=== PATIENT | female | born 1970 | race American Indian/Alaskan Native ===

== ENCOUNTER 2016-10-20 12:02 | Outpatient (CLI) | payer MEDICAID ==
--- NOTE | 2016-10-21 09:03 | Mammography Report ---
BILATERAL DIGITAL SCREENING MAMMOGRAM with CAD: 10/20/16 12:02:00 CLINICAL: Routine screening. COMPARISON:07/01/15 FINDINGS: The breasts are heterogeneously dense, which may obscure small masses. Right asymmetries require additional imaging.No architectural distortion or suspicious calcifications.The left breast is negative. IMPRESSION: Right asymmetries requiring further workup. BI-RADS CATEGORY: 0 -- Additional Imaging Evaluation Required RECOMMENDATION: Recall for right mediolateral , spot compression CC and MLO views and right breast ultrasound if needed. ACR BI-RADS MAMMOGRAPHIC CODES: 0 = Needs additional imaging evaluation; 1 = Negative; 2 = Benign; 3 = Probably benign; 4 = Suspicious; 5 = Malignant; 6 = Known biopsy-proven malignancy COMMENT: 1. Dense breast tissue, i.e., adenosis, fibrocystic changes, etc., may obscure an underlying neoplasm. 2. Approximately 10% of cancers are not detected with mammography. 3. A negative mammography report should not delay biopsy if a clinically suspicious mass is present. COMMENT: Patient follow-up letters are generated via our [employer] application.
== END 2016-10-20 12:03 | disposition home or self-care (01) ==
LOC: MAMMO 12:02
PROVIDERS: ATTEND Internal Medicine
DX: Z12.31 Encounter for screening mammogram for malignant neoplasm of breast (principal)
CPT/HCPCS: 77067; G0202

== ENCOUNTER 2017-07-10 11:05 | Emergency (ER) | payer MEDICAID ==
[2017-07-10 11:15] VITALS: BP 129/76
[2017-07-10] MEDS ORDERED: TORADOL IM ONE (11:37)
[2017-07-10] MEDS ORDERED: FLEXERIL PO ONE (11:37)
[2017-07-10] MEDS ORDERED: ULTRAM PO ONE (11:37)
--- NOTE | 2017-07-10 11:52 | Emergency Department Report ---
ED Neck Pain/Injury HPI - General Chief Complaint: Neck Pain/Injury Stated Complaint: NECK PAIN Time Seen by Provider: 07/10/17 11:22 Mode of arrival: Ambulatory Limitations: No Limitations - History of Present Illness MD Complaint: neck pain -: Sudden Place: home Radiation: right lateral Quality: other (stiff) Consistency: intermittent, other (has had before) Improves With: none Worsens With: none Context: other (no trauma. no fever. no other s/s. no recent mvc. no recent urti. has had this before. just wakes up like this. on xanax for anxiety. it is not helping. ) Associated Symptoms: none. denies: headache, fever, numbness, tingling, weakness, vertigo, difficulty walking, swollen glands, difficulty swallowing, nausea, vomiting Treatments Prior to Arrival: other (xanax) - Related Data Previous Rx's Medication Instructions Recorded Last Taken Type Cyclobenzaprine [Flexeril] 10 mg PO BID PRN #10 tablet 07/10/17 Unknown Rx predniSONE [Deltasone] 20 mg PO DAILY #5 tablet 07/10/17 Unknown Rx traMADol [Ultram] 50 mg PO Q6HR PRN #12 tablet 07/10/17 Unknown Rx Allergies Allergy/AdvReac Type Severity Reaction Status Date / Time cefoxitin sodium Allergy Shortness Verified 05/22/14 14:38 [From Mefoxin] of Breath ED Review of Systems ROS: Stated complaint: NECK PAIN Other details as noted in HPI Comment: All other systems reviewed and negative Musculoskeletal: other (neck stiff upon wakening this am; no other s/s; ambulatory) ED Past Medical Hx - Past Medical History Hx Congestive Heart Failure: No Hx Diabetes: No Hx Asthma: Yes Hx COPD: No Additional medical history: anxiety. previous neck spasm - Surgical History Additional Surgical History: c section. partial hysterectomy - 2008 - Social History Smoking Status: Never Smoker Substance Use Type: None - Medications Home Medications: Home Medications Medication Instructions Recorded Confirmed Last Taken Type Cyclobenzaprine [Flexeril] 10 mg PO BID PRN #10 tablet 07/10/17 Unknown Rx predniSONE [Deltasone] 20 mg PO DAILY #5 tablet 07/10/17 Unknown Rx traMADol [Ultram] 50 mg PO Q6HR PRN #12 tablet 07/10/17 Unknown Rx ED Physical Exam - General Limitations: No Limitations General appearance: alert - Head Head exam: Present: atraumatic - Eye Eye exam: Present: normal appearance Pupils: Present: normal accommodation - ENT ENT exam: Present: normal exam - Neck Neck exam: Present: full ROM (but stiff and pain w turn to left), other (no point tenderness or step off). Absent: tenderness, meningismus, lymphadenopathy , thyromegaly - Respiratory Respiratory exam: Present: normal lung sounds bilaterally - Cardiovascular Cardiovascular Exam: Present: regular rate - GI/Abdominal GI/Abdominal exam: Present: soft - Rectal Rectal exam: Present: deferred - Extremities Exam Extremities exam: Present: normal inspection - Back Exam Back exam: Present: normal inspection, full ROM - Neurological Exam Neurological exam: Present: alert, oriented X3 - Psychiatric Psychiatric exam: Present: normal affect, normal mood - Skin Skin exam: Present: warm, dry, intact. Absent: rash ED Course Vital Signs 07/10/17 11:14 Temperature 98.4 F Pulse Rate 64 Respiratory 18 Rate Blood Pressure 129/76 O2 Sat by Pulse 100 Oximetry - Reevaluation(s) Reevaluation #1: 07/10/17 11:52 medicated w toradol, flexeril, and ultram Reevaluation #2: 07/10/17 12:39 NOW DEC PAIN AND MOVING WELL ED Medical Decision Making - Medical Decision Making woke up w stiff neck has had before no other s/s can move but w pain to left on xanax does not help ambulatory - Differential Diagnosis soft tissue inj v djd Critical care attestation.: If time is entered above; I have spent that time in minutes in the direct care of this critically ill patient, excluding procedure time. ED Disposition Clinical Impression: Torticollis Disposition: DC-01 TO HOME OR SELFCARE Is pt being admited?: No Does the pt Need Aspirin: No Condition: Stable Instructions: Spasmodic Torticollis (ED) Additional Instructions: heat rest meds as ordered follow up pcp or with ortho new pillow as we discussed Prescriptions: Cyclobenzaprine [Flexeril] 10 mg PO BID PRN #10 tablet PRN Reason: Muscle Spasm predniSONE [Deltasone] 20 mg PO DAILY #5 tablet traMADol [Ultram] 50 mg PO Q6HR PRN #12 tablet PRN Reason: Pain Referrals: PRIMARY CARE, [Primary Care Provider] - 3-5 Days SVETA PEDRO MD [Referring] - 3-5 Days ARCELIA TIRADO MD [Staff Physician] - 3-5 Days Time of Disposition: 11:52
== END 2017-07-10 12:46 | disposition home or self-care (01) ==
LOC: ED 11:05
DX: M43.6 Torticollis (principal); J45.909 Unspecified asthma, uncomplicated
CPT/HCPCS: 96372; 99282; J1885

== ENCOUNTER 2017-10-16 13:08 | Emergency (ER) | payer MEDICAID ==
[2017-10-16 16:53] LABS: HCG Qualitative,Urine Negative (Negative)
[2017-10-16 16:56] LABS: Bilirubin,Urine NEG (Negative); Blood,Urine NEG (Negative); Color,Urine Yellow (Yellow); Protein,Urine <15 mg/dL mg/dL (Negative); Urobilinogen,Urine < 2.0 mg/dL (<2.0)
[2017-10-16] MEDS ORDERED: ULTRAM PO ONE (17:20)
--- NOTE | 2017-10-16 17:29 | Emergency Department Report ---
HPI - General Chief Complaint: Back Pain/Injury Time Seen by Provider: 10/16/17 16:20 - HPI HPI: Patient is a 47-year-old female with no prior medical history of present ED complaining of mid to lower back pain 4 days. Patient denies any injury or trauma or fall. Patient states pain is localized to her lower back and sometimes felt on the right side of the back. She describes the pain as throbbing and aching in nature related to tingling sensation at times. Patient states is intermittent throughout the day. She denies fevers chills/dysuria/ vaginal discharge/flank or Abdominal pain/chest pain/shortness of breath. Patient states pain worsens with certain movement. Patient states she takes no medications for any other medical problems ED Past Medical Hx - Past Medical History Hx Congestive Heart Failure: No Hx Diabetes: No Hx Asthma: Yes Hx COPD: No Additional medical history: anxiety. previous neck spasm - Surgical History Additional Surgical History: c section. partial hysterectomy - 2008 - Social History Smoking Status: Never Smoker Substance Use Type: Marijuana - Medications Home Medications: Home Medications Medication Instructions Recorded Confirmed Last Taken Type Cyclobenzaprine [Flexeril] 10 mg PO BID PRN #10 tablet 07/10/[address] (Nf) 50 mg PO BID #30 tablet. 10/16/17 Unknown Rx predniSONE [Deltasone] 20 mg PO DAILY #5 tablet 10/16/17 Unknown Rx traMADol [Ultram 50 MG tab] 50 mg PO Q6HR PRN #12 tablet 10/16/17 Unknown Rx ED Review of Systems ROS: Stated complaint: BACK PAIN Other details as noted in HPI Constitutional: denies: chills, fever Eyes: denies: eye pain, eye discharge, vision change ENT: denies: ear pain, throat pain Respiratory: denies: cough, shortness of breath, wheezing Cardiovascular: denies: chest pain, palpitations Endocrine: no symptoms reported Gastrointestinal: denies: abdominal pain, nausea, diarrhea Genitourinary: denies: urgency, dysuria, discharge Musculoskeletal: back pain, myalgia. denies: joint swelling, arthralgia Skin: denies: rash, lesions Neurological: denies: headache, weakness, paresthesias Psychiatric: denies: anxiety, depression Hematological/Lymphatic: denies: easy bleeding, easy bruising Physical Exam - Physical Exam Vital Signs: Vital Signs 10/16/17 14:08 Temperature 98.5 F Pulse Rate 64 Respiratory 18 Rate Blood Pressure 118/71 O2 Sat by Pulse 98 Oximetry Physical Exam: GENERAL: Alert and oriented x3, no apparent distress, Normal Gait, atraumatic. HEAD: Head is normocephalic and a-traumatic. LUNGS: Symetrical with respiration, No wheezing, no rales or crackles, CTAB. HEART: S1, S2 present, regular rate and rhythm without murmur, no rubs, no gallops. Non tender to palpation ABDOMEN: No organomegaly was noted,Positive bowel sounds, soft, and non- distended. . Nontender to palpation on all Quadrants, NO CVA tenderness. BACK: Full range of motion, no spinal tenderness, tenderness to palpation of the latissimus dorsi muscles. EXTREMITIES/MUSCULOSKELETAL: No cyanosis, clubbing, rash, lesions or edema. Full ROM bilaterally. UE/LE Pulses 2+ bilaterally. LE and UE 5+ strength bilaterally, NEUROLOGIC: The patient is cooperative with no focal neurologic deficits. SKIN: Warm and dry, No lesions, No ulceration or induration present. ED Course Vital Signs 10/16/17 14:08 Temperature 98.5 F Pulse Rate 64 Respiratory 18 Rate Blood Pressure 118/71 O2 Sat by Pulse 98 Oximetry ED Medical Decision Making - Medical Decision Making 47-year-old female presents to ED with lumbar radiculopathy ED course: Patient received tramadol in ED. Urinalysis is ordered, urinalysis shows no acute findings negative Vital signs are normal patient is in no acute distress Discussed with patient follow-up with primary care physician. Discussed the patient and take medications as prescribed. Patient has no neurological deficit. Patient is alert and oriented 3 and understands all instructions given. Discussed drowsiness effect of tramadol makes her drowsy and not to operate machinery while taking Critical care attestation.: If time is entered above; I have spent that time in minutes in the direct care of this critically ill patient, excluding procedure time. ED Disposition Clinical Impression: Myalgia, Muscle spasm, Lumbar radiculopathy Disposition: TO HOME OR SELFCARE Is pt being admited?: No Does the pt Need Aspirin: No Condition: Stable Instructions: Lumbar Radiculopathy (ED), Musculoskeletal Pain (ED), Trigger Point Pain (ED) Additional Instructions: Make sure to follow up with the primary care physician as discussed. Take all your medications as you've been prescribed. If you have any worsening symptoms or develop new symptoms please return to ED immediately. Prescriptions: Diclofenac Dr (Nf) 50 mg PO BID #30 tablet. predniSONE [Deltasone] 20 mg PO DAILY #5 tablet traMADol [Ultram 50 MG tab] 50 mg PO Q6HR PRN #12 tablet PRN Reason: Pain Referrals: ALMA DELIA HARVEY MD [Primary Care Provider] - 3-5 Days JAIME MORE MD [Staff Physician] - 3-5 Days NATALIE ZHU MD [Referring] - 3-5 Days [facility] [Outside] - 3-5 Days [facility] [Outside] - 3-5 Days Forms: Work/School Release Form, Accompanied Note Time of Disposition: 18:01
[2017-10-16 18:07] VITALS: BP 116/78
== END 2017-10-16 18:24 | disposition home or self-care (01) ==
LOC: ED 13:08
DX: M54.16 Radiculopathy, lumbar region (principal); F12.10 Cannabis abuse, uncomplicated
CPT/HCPCS: 81001; 81025; 87086; 99283

== ENCOUNTER 2018-01-17 12:54 | Outpatient (CLI) | payer MEDICAID | END 2018-01-17 12:55 | disposition home or self-care (01) | LOC: MAMMO 12:54 | PROVIDERS: ATTEND Obstetrics & Gynecology | DX: Z12.31 Encounter for screening mammogram for malignant neoplasm of breast (principal) | CPT/HCPCS: 77067 ==

== ENCOUNTER 2018-02-28 08:48 | Emergency (ER) | payer MEDICAID ==
[2018-02-28 09:49] LABS: Basophils % (Auto) 0.8 % (0.0-1.8); Eosinophils # (Auto) 0.1 K/mm3 (0.0-0.4); Eosinophils % (Auto) 1.9 % (0.0-4.3); Hematocrit 40.8 % (30.3-42.9); Hemoglobin 13.2 gm/dl (10.1-14.3); Lymphocytes # (Auto) 2.4 K/mm3 (1.2-5.4); Lymphocytes % (Auto) 47.3 % (13.4-35.0); Mean Corpuscular HGB Conc 32 % (30-34); Mean Corpuscular Volume 74 fl (79-97); Monocytes # (Auto) 0.4 K/mm3 (0.0-0.8); Monocytes % (Auto) 8.4 % (0.0-7.3); Platelet Count 256 K/mm3 (140-440); Red Blood Count 5.54 M/mm3 (3.65-5.03)
[2018-02-28 09:57] LABS: Mean Corpuscular Hemoglobin 24 pg (28-32)
[2018-02-28 10:05] LABS: BUN/Creatinine Ratio 17; Blood Urea Nitrogen 10 mg/dL (7-17); Hemolysis Index 16
--- NOTE | 2018-02-28 10:57 | Emergency Department Report ---
Blank Doc - Documentation Documentation: Patient presents to the emergency department with complaint of right scapular pain that radiates into her chest. Patient states she's had this on and off for the last couple months with the getting worse over the last 2-3 weeks. Patient states she sees a chiropractor was told that she has gas in the upper portion of her abdomen is causing her pain. Patient denies veena chest pain, abdominal pain, nausea, vomiting. Patient states she has anxiety but this feels slightly different abnormal Tello attacks because the pain radiates from her back into her toes. On my exam physical exam was within normal limits for respiratory and cardiovascular systems. Care be turned over to the mid-level provider with consultation provided by me EKG shows a sinus rhythm at 63 bpm with low voltage. No ST elevations or depressions not a STEMI
--- NOTE | 2018-02-28 11:53 | XRay Report ---
AP CHEST: HISTORY: chest pain AP view of the chest demonstrates a normal mediastinal and cardiac contour with clear lungs and normal bony and soft tissue structures. IMPRESSION: Unremarkable AP chest.
[2018-02-28] MEDS ORDERED: ATIVAN IV ONE (13:43)
--- NOTE | 2018-02-28 13:59 | Emergency Department Report ---
ED Chest Pain HPI - General Chief Complaint: Chest Pain Stated Complaint: CHEST PAIN/BACK Time Seen by Provider: 02/28/18 10:34 Source: patient Mode of arrival: Ambulatory Limitations: No Limitations - History of Present Illness Initial Comments: This is a 47-year-old female nontoxic, well nourished in appearance, no acute signs of distress presents to the ED with c/o of intermittent right upper back pain that radiates to right sided chest pain x3 weeks. Patient describes pain as aching intermittently. Patient denies any upper respiratory symptoms. Patient denies any shortness of breath, hemoptysis, fever, chills, nausea, vomiting, headache, stiff neck, numbness, tingling, abdominal pain. Patient denies pleuritic chest pain. Patient denies any recent travels or long car rides. Patient denies any recent surgeries or any sick contacts. Patient stated allergies to Mefoxin. Past medical history includes anxiety. MD Complaint: chest pain -: week(s) (3) Pain Location: right chest Pain Radiation: back Severity: mild Severity scale (0 -10): 8 Quality: aching Consistency: intermittent Improves With: nothing Worsens With: nothing re: denies: nausea, vomting, diaphoresis, dyspnea, sense of impending doom Other Symptoms: denies: cough, fever, syncope, rash, acid taste in mouth, leg swelling, palpitations, burping Aspirin use within the Past 7 Days: (0) No - Related Data On Oral Contraceptives: No Previous Rx's Medication Instructions Recorded Last Taken Type Cyclobenzaprine [Flexeril] 10 mg PO BID PRN #10 tablet 07/10/[address] (Nf) 50 mg PO BID #30 tablet. 10/16/17 Unknown Rx predniSONE [Deltasone] 20 mg PO DAILY #5 tablet 10/16/17 Unknown Rx traMADol [Ultram 50 MG tab] 50 mg PO Q6HR PRN #12 tablet 10/16/17 Unknown Rx Cyclobenzaprine [Flexeril] 10 mg PO QHS PRN #10 tablet 02/28/18 Unknown Rx Ibuprofen [Motrin] 600 mg PO Q8H PRN #30 tablet 02/28/18 Unknown Rx Allergies Allergy/AdvReac Type Severity Reaction Status Date / Time cefoxitin sodium Allergy Shortness Verified 05/22/14 14:38 [From Mefoxin] of Breath Heart Score - HEART Score History: Slightly suspicious EKG: Normal Age: 45-65 Risk factors: No known risk factors Troponin: < normal limit HEART Score: 1 ED Review of Systems ROS: Stated complaint: CHEST PAIN/BACK Other details as noted in HPI Constitutional: denies: chills, fever Eyes: denies: eye pain, eye discharge, vision change ENT: denies: ear pain, throat pain Respiratory: denies: cough, shortness of breath, wheezing Cardiovascular: chest pain. denies: palpitations Endocrine: no symptoms reported Gastrointestinal: denies: abdominal pain, nausea, diarrhea Genitourinary: denies: urgency, dysuria, discharge Musculoskeletal: back pain. denies: joint swelling, arthralgia Skin: denies: rash, lesions Neurological: denies: headache, weakness, paresthesias Psychiatric: denies: anxiety, depression Hematological/Lymphatic: denies: easy bleeding, easy bruising ED Past Medical Hx - Past Medical History Previous Medical History?: Yes Hx Congestive Heart Failure: No Hx Diabetes: No Hx Asthma: Yes Hx COPD: No Additional medical history: anxiety. previous neck spasm - Surgical History Past Surgical History?: Yes Additional Surgical History: c section. partial hysterectomy - 2008 - Social History Smoking Status: Never Smoker Substance Use Type: Marijuana - Medications Home Medications: Home Medications Medication Instructions Recorded Confirmed Last Taken Type Cyclobenzaprine [Flexeril] 10 mg PO BID PRN #10 tablet 07/10/[address] (Nf) 50 mg PO BID #30 tablet.dr 10/16/17 Unknown Rx predniSONE [Deltasone] 20 mg PO DAILY #5 tablet 10/16/17 Unknown Rx traMADol [Ultram 50 MG tab] 50 mg PO Q6HR PRN #12 tablet 10/16/17 Unknown Rx Cyclobenzaprine [Flexeril] 10 mg PO QHS PRN #10 tablet 02/28/18 Unknown Rx Ibuprofen [Motrin] 600 mg PO Q8H PRN #30 tablet 02/28/18 Unknown Rx ED Physical Exam - General Limitations: No Limitations General appearance: alert, in no apparent distress - Head Head exam: Present: atraumatic, normocephalic - Eye Eye exam: Present: normal appearance Pupils: Present: normal accommodation - ENT ENT exam: Present: normal exam, mucous membranes moist - Neck Neck exam: Present: normal inspection, full ROM. Absent: tenderness, meningismus, lymphadenopathy - Respiratory Respiratory exam: Present: normal lung sounds bilaterally. Absent: respiratory distress, wheezes, rales, rhonchi, stridor, chest wall tenderness, accessory muscle use, decreased breath sounds, prolonged expiratory - Cardiovascular Cardiovascular Exam: Present: regular rate, normal rhythm, normal heart sounds. Absent: bradycardia, tachycardia, irregular rhythm, systolic murmur, diastolic murmur, rubs, gallop - GI/Abdominal GI/Abdominal exam: Present: soft, normal bowel sounds. Absent: distended, tenderness, guarding, rebound, rigid, diminished bowel sounds - Extremities Exam Extremities exam: Present: normal inspection, full ROM, normal capillary refill. Absent: tenderness - Back Exam Back exam: Present: normal inspection, full ROM. Absent: tenderness, CVA tenderness (R), CVA tenderness (L), muscle spasm, paraspinal tenderness, vertebral tenderness, rash noted - Neurological Exam Neurological exam: Present: alert, oriented X3, normal gait - Psychiatric Psychiatric exam: Present: normal affect, normal mood - Skin Skin exam: Present: warm, dry, intact, normal color. Absent: rash ED Course Vital Signs 02/28/18 02/28/18 09:08 10:30 Temperature 98.7 F Pulse Rate 76 Respiratory 18 16 Rate Blood Pressure 112/71 O2 Sat by Pulse 100 Oximetry - Reevaluation(s) Reevaluation #1: 02/28/18 13:58 Patient is speaking in full sentences with no signs of distress noted. - Consultations Consultation #1: 02/28/18 13:59 Patient has been consulted with Rikki Ledbetter about patient history, physical exam, and labs and examined and screened patient and agrees to ED plan of care. MARISA score - Marisa Score Age > 65: (0) No Aspirin use within the Past 7 Days: (0) No 3 or more CAD Risk Factors: (0) No 2 or more Angina events in past 24 hrs: (0) No Known CAD with more than 50% Stenosis: (0) No Elevated Cardiac Markers: (0) No ST Deviation Greater than 0.5mm: (0) No MARISA Score: 0 ED Medical Decision Making - Lab Data Result diagrams: 02/28/18 09:22 02/28/18 09:19 - Medical Decision Making This is a 47-year-old male that presents with chest pain and cervical muscle pain. Patient is stable and was examined by me and Dr. Galloway. MARISA score 0 points and HEART score 1 point. Wells criteria for DVT/SVT/PE 0 points. Slight elevation in d-dimmer. CTA and Chest xray obtained and dictated by the radiologist within normal limits. EKG normal sinus rhythm with no significant changes in ST. PAtient is notified of the Xray/CTA report with no questions noted. Labs within normal limits. Negative troponin. Patient received Ativan due to being claustrophobic for CTA in the ED which she stated his symptoms are improving subsided of chest pain. I will discharge patient with Flexeril and Motrin. Patient was instructed to Follow-up with a primary care/discharge door operator doctor in 3-5 days or if symptoms worsen and continue return to emergency room as soon as possible. At time of discharge, the patient does not seem toxic or ill in appearance. No acute signs of distress noted. Patient agrees to discharge treatment plan of care. No further questions noted by the patient. Critical care attestation.: If time is entered above; I have spent that time in minutes in the direct care of this critically ill patient, excluding procedure time. ED Disposition Clinical Impression: Cervical muscle pain Chest pain Qualifiers: Chest pain type: unspecified Qualified Code(s): R07.9 - Chest pain, unspecified Disposition: DC-01 TO HOME OR SELFCARE Is pt being admited?: No Does the pt Need Aspirin: No Condition: Stable Instructions: Chest Pain (ED), Muscle Strain (ED), Cyclobenzaprine (By mouth) Additional Instructions: Follow-up with your primary care doctor in 3-5 days or if symptoms worsen such as bladder or bowel stability, chest pain, short of breath, numbness or tingling sensation in extremities, headache, dizziness, visual changes, nausea vomiting, or abdominal pain, return back to emergency room as was possible. Take ibuprofen and Flexeril as prescribed. Do not operate heavy machinery while taking Flexeril due to sedation Prescriptions: Cyclobenzaprine [Flexeril] 10 mg PO QHS PRN #10 tablet PRN Reason: Muscle Spasm Ibuprofen [Motrin] 600 mg PO Q8H PRN #30 tablet PRN Reason: Pain Referrals: PRIMARY CARE, [Primary Care Provider] - 3-5 Days YOU BRAN MD [Staff Physician] - 3-5 Days [facility] [Outside] - 3-5 Days [facility] [Outside] - 3-5 Days Forms: Work/School Release Form(ED)
--- NOTE | 2018-02-28 14:34 | Cat Scan Report ---
CTA CHEST: HISTORY: Chest pain, shortness of breath. COMPARISON: none. TECHNIQUE: Helical CT in 1.25mm intervals following IV contrast. Pulmonary embolus protocol. Sagittal and coronal reformatted images. Rotational MIP images. FINDINGS: Contrast bolus is suboptimal. No large central pulmonary embolus is identified. Resolution in the distal smaller pulmonary arteries is suboptimal. Thyroid gland: Normal. Tracheobronchial tree: Normal. Esophagus: Normal. Heart: Normal. Pericardium: Normal. Mediastinum: Normal. Lung Sutton: normal. Pleural Spaces: Normal. Musculoskeletal: Normal. IMPRESSION: Limited examination to detect pulmonary embolus. No large central pulmonary embolus is identified. See above. Otherwise, unremarkable CT chest with contrast.
[2018-02-28 15:04] VITALS: BP 110/70
== END 2018-02-28 15:03 | disposition home or self-care (01) ==
LOC: ED 08:48
DX: M54.2 Cervicalgia (principal); R07.9 Chest pain, unspecified; J45.909 Unspecified asthma, uncomplicated; F41.9 Anxiety disorder, unspecified; F12.90 Cannabis use, unspecified, uncomplicated; Z88.8 Allergy status to other drugs, medicaments and biological substances; Z90.711 Acquired absence of uterus with remaining cervical stump; Z79.899 Other long term (current) drug therapy
CPT/HCPCS: 36415; 71045; 71275; 80048; 84484; 85025; 85379; 93005; 93010; 96374; 99285; J2060; Q9967

== ENCOUNTER 2018-09-18 06:35 | Emergency (ER) | payer MEDICAID ==
[2018-09-18] MEDS ORDERED: TORADOL PO NR (08:10)
--- NOTE | 2018-09-18 08:15 | Emergency Department Report ---
ED Chest Pain HPI - General Chief Complaint: Chest Pain Stated Complaint: HURT WHEN INHALE Time Seen by Provider: 09/18/18 08:06 Source: patient Mode of arrival: Ambulatory Limitations: No Limitations - History of Present Illness Initial Comments: Pt reports R thoracic pain and R chest pain, with deep breathing x a few days NO SOB, no injury hx of blood clots per patient but does not take blood thinners Complaint: chest pain -: Gradual, days(s) (2) Onset: other Pain Location: right chest Pain Radiation: back Severity: moderate Severity scale (0 -10): 8 Quality: sharp Consistency: constant Improves With: nothing Worsens With: inspiration re: denies: nausea, vomting, dyspnea Other Symptoms: denies: cough, fever Treatments Prior to Arrival: none - Related Data Previous Rx's Medication Instructions Recorded Last Taken Type Diclofenac Dr (Nf) 50 mg PO BID #30 tablet. 10/16/17 Unknown Rx predniSONE [Deltasone] 20 mg PO DAILY #5 tablet 10/16/17 Unknown Rx traMADol [Ultram 50 MG tab] 50 mg PO Q6HR PRN #12 tablet 10/16/17 Unknown Rx Cyclobenzaprine [Flexeril] 10 mg PO QHS PRN #10 tablet 02/28/18 Unknown Rx Ibuprofen [Motrin] 600 mg PO Q8H PRN #30 tablet 02/28/18 Unknown Rx Omeprazole 40 mg PO DAILY #30 capsule. 07/07/18 Unknown Rx Cyclobenzaprine [Flexeril 10 MG 10 mg PO TID PRN #15 tablet 09/18/18 Unknown Rx TAB] Naproxen [Naprosyn] 500 mg PO BID PRN #20 tablet 09/18/18 Unknown Rx Allergies Allergy/AdvReac Type Severity Reaction Status Date / Time cefoxitin sodium Allergy Shortness Verified 05/22/14 14:38 [From Mefoxin] of Breath Heart Score - HEART Score History: Slightly suspicious EKG: Normal Age: 45-65 Risk factors: 1-2 risk factors Troponin: < normal limit HEART Score: 2 - Critical Actions Critical Actions: 0-3 pts:0.9-1.7%risk of adverse cardiac event.Candidate for discharge ED Review of Systems ROS: Stated complaint: HURT WHEN INHALE Other details as noted in HPI Comment: All other systems reviewed and negative Cardiovascular: as per HPI, chest pain ED Past Medical Hx - Past Medical History Hx Congestive Heart Failure: No Hx Diabetes: No Hx Arthritis: Yes Hx Asthma: Yes Hx COPD: No Additional medical history: anxiety. previous neck spasm - Surgical History Additional Surgical History: c section. partial hysterectomy - 2008, - Social History Smoking Status: Never Smoker Substance Use Type: None - Medications Home Medications: Home Medications Medication Instructions Recorded Confirmed Last Taken Type Diclofenac Dr (Nf) 50 mg PO BID #30 tablet. 10/16/17 Unknown Rx predniSONE [Deltasone] 20 mg PO DAILY #5 tablet 10/16/17 Unknown Rx traMADol [Ultram 50 MG tab] 50 mg PO Q6HR PRN #12 tablet 10/16/17 Unknown Rx Cyclobenzaprine [Flexeril] 10 mg PO QHS PRN #10 tablet 02/28/18 Unknown Rx Ibuprofen [Motrin] 600 mg PO Q8H PRN #30 tablet 02/28/18 Unknown Rx Omeprazole 40 mg PO DAILY #30 capsule. 07/07/18 Unknown Rx Cyclobenzaprine [Flexeril 10 MG 10 mg PO TID PRN #15 tablet 09/18/18 Unknown Rx TAB] Naproxen [Naprosyn] 500 mg PO BID PRN #20 tablet 09/18/18 Unknown Rx ED Physical Exam - General Limitations: No Limitations General appearance: alert, in no apparent distress - Head Head exam: Present: atraumatic, normocephalic - Eye Eye exam: Present: normal appearance - ENT ENT exam: Present: mucous membranes moist - Neck Neck exam: Present: normal inspection - Respiratory Respiratory exam: Present: normal lung sounds bilaterally. Absent: respiratory distress, wheezes - Cardiovascular Cardiovascular Exam: Present: regular rate, normal rhythm. Absent: systolic murmur, diastolic murmur, rubs, gallop - GI/Abdominal GI/Abdominal exam: Present: soft, normal bowel sounds. Absent: tenderness, guarding - Extremities Exam Extremities exam: Present: normal inspection - Back Exam Back exam: Present: normal inspection - Neurological Exam Neurological exam: Present: alert, oriented X3 - Psychiatric Psychiatric exam: Present: normal affect, normal mood - Skin Skin exam: Present: warm, dry, intact, normal color. Absent: rash ED Course Vital Signs 09/18/18 09/18/18 09/18/18 06:45 06:54 10:50 Temperature 98.6 F 98.6 F Pulse Rate 70 70 Respiratory 18 16 15 Rate Blood Pressure 116/73 116/73 O2 Sat by Pulse 100 100 Oximetry 09/18/18 12:16 Temperature 98.7 F Pulse Rate 74 Respiratory 15 Rate Blood Pressure 114/65 O2 Sat by Pulse 100 Oximetry - Reevaluation(s) Reevaluation #1: 09/18/18 13:04 stable results discussed fu pcp MARISA score - Marisa Score Age > 65: (0) No Aspirin use within the Past 7 Days: (0) No 3 or more CAD Risk Factors: (0) No 2 or more Angina events in past 24 hrs: (0) No Known CAD with more than 50% Stenosis: (0) No Elevated Cardiac Markers: (0) No ST Deviation Greater than 0.5mm: (0) No MARISA Score: 0 ED Medical Decision Making - Lab Data Result diagrams: 09/18/18 08:44 09/18/18 08:44 - EKG Data -: EKG Interpreted by Me EKG shows normal: sinus rhythm Rate: normal - EKG Data When compared to previous EKG there are: previous EKG unavailable Interpretation: normal EKG - Radiology Data Radiology results: image reviewed interpreted by me: normal cxr - Medical Decision Making pleuritic pain benign exam given hx, CTA r/o PE toradol PO dispo per CT results - Differential Diagnosis PE, pleurisy, musculoskeletal pain Critical care attestation.: If time is entered above; I have spent that time in minutes in the direct care of this critically ill patient, excluding procedure time. ED Disposition Clinical Impression: Chest pain, pleuritic Disposition: DC- TO HOME OR SELFCARE Is pt being admited?: No Condition: Good Instructions: Chest Pain (ED), Pleurisy (ED) Prescriptions: Cyclobenzaprine [Flexeril 10 MG TAB] 10 mg PO TID PRN #15 tablet PRN Reason: Muscle Spasm Naproxen [Naprosyn] 500 mg PO BID PRN #20 tablet PRN Reason: Pain , Severe (7-10) Referrals: AL[place] DELIA HARVEY MD [Primary Care Provider] - 3-5 Days Time of Disposition: 13:05
[2018-09-18 09:01] LABS: Basophils # (Auto) 0.1 K/mm3 (0.0-0.1); Eosinophils # (Auto) 0.1 K/mm3 (0.0-0.4); Eosinophils % (Auto) 1.5 % (0.0-4.3); Hematocrit 40.2 % (30.3-42.9); Lymphocytes # (Auto) 2.2 K/mm3 (1.2-5.4); Lymphocytes % (Auto) 35.2 % (13.4-35.0); Mean Corpuscular HGB Conc 32 % (30-34); Mean Corpuscular Volume 74 fl (79-97); Monocytes # (Auto) 0.5 K/mm3 (0.0-0.8); Monocytes % (Auto) 8.6 % (0.0-7.3); Platelet Count 297 K/mm3 (140-440); Red Blood Count 5.46 M/mm3 (3.65-5.03); Red Cell Distribution Width 15.2 % (13.2-15.2)
--- NOTE | 2018-09-18 09:35 | XRay Report ---
FINAL REPORT PROCEDURE: XR CHEST ROUTINE 2V TECHNIQUE: PA and lateral chest radiographs were obtained. CPT 46715 HISTORY: chest pain COMPARISON: No prior studies are available for comparison. FINDINGS: Heart: Normal. Mediastinum/Vessels: Normal. Lungs/Pleural space: Normal. Bony thorax: No acute osseous abnormality. Other: IMPRESSION: There is no evidence of an acute cardiopulmonary process.
[2018-09-18 10:36] LABS: BUN/Creatinine Ratio 32; Blood Urea Nitrogen 16 mg/dL (7-17); Calcium 9.2 mg/dL (8.4-10.2); Hemolysis Index 63
[2018-09-18 12:18] VITALS: BP 114/65
--- NOTE | 2018-09-18 12:51 | Cat Scan Report ---
FINAL REPORT EXAM: CT ANGIO CHEST HISTORY: hx PE, CP (R side)` TECHNIQUE: CTA of chest with IV contrast. Coronal and sagittal and MIP reconstructed images provided . PRIORS: CT chest June 06, 2015. FINDINGS: No pneumothorax. No effusion. No consolidation. No endobronchial lesion. Main pulmonary artery is unremarkable. No pulmonary embolus. No aortic aneurysm. No aortic aneurysm. No dissection. Heart size unremarkable. No pericardial effusion. There is no axillary adenopathy. There is no hilar or mediastinal mass or adenopathy. Images of the esophagus are unremarkable. Images of the thyroid are unremarkable. No suspicious osseous lesions on this limited examination of the skeleton. Metastatic disease better evaluated with bone scan. IMPRESSION: No acute findings.
== END 2018-09-18 13:09 | disposition home or self-care (01) ==
LOC: ED 06:35
DX: R07.81 Pleurodynia (principal); J45.909 Unspecified asthma, uncomplicated; M19.90 Unspecified osteoarthritis, unspecified site; F41.9 Anxiety disorder, unspecified; Z90.711 Acquired absence of uterus with remaining cervical stump; Z86.2 Personal history of diseases of the blood and blood-forming organs and certain disorders involving the immune mechanism; Z88.8 Allergy status to other drugs, medicaments and biological substances
CPT/HCPCS: 36415; 71046; 71275; 80048; 84484; 85025; 93005; 93010; 99284; Q9967

== ENCOUNTER 2018-11-17 08:04 | Outpatient (CLI) | payer MEDICAID ==
--- NOTE | 2018-11-17 13:53 | Vascular Lab Report ---
PROCEDURE: VL VENOUS DUPLEX LE BILAT TECHNIQUE: Duplex Doppler sonography of the BILATERAL . Germain scale imaging with and without compress ion, spectral waveform analysis with and without augmentation, and color flow Doppler were employed. HISTORY: VENOUS INSUFFICIENCY CHRONIC PERIPHERAL COMPARISONS: None FINDINGS: RIGHT lower EXTREMITY: Deep Venous Thrombus: None Superficial Venous Thrombus: None Venous valvular incompetence: Reflux noted in the right common femoral vein. Soft tissue abnormality: None LEFT lower EXTREMITY: Deep Venous Thrombus: None Superficial Venous Thrombus: None Venous valvular incompetence: Reflux within the left common femoral vein and left greater saphenous vein. Soft tissue abnormality: None IMPRESSION: No evidence of deep venous thrombosis. Venous incompetence within the right common femoral vein, left common femoral vein, left greater saph enous vein. This document is electronically signed by Renae Sanders MD., November 17 2018 01:50:34 PM ET
== END 2018-11-17 08:05 | disposition home or self-care (01) ==
LOC: VAS 08:04
PROVIDERS: ATTEND Internal Medicine
DX: I87.2 Venous insufficiency (chronic) (peripheral) (principal); I82.91 Chronic embolism and thrombosis of unspecified vein; J45.909 Unspecified asthma, uncomplicated; Z90.710 Acquired absence of both cervix and uterus
CPT/HCPCS: 93970

== ENCOUNTER 2018-11-21 09:48 | Outpatient (CLI) | payer MEDICAID ==
[2018-11-21 11:33] LABS: Alanine Aminotransferase 13 units/L (7-56); Albumin 3.9 g/dL (3.9-5); Chol/HDL Ratio 3.41 %; HDL Cholesterol 62 mg/dL (40-59); LDL Cholesterol,Direct 149 mg/dL (50-130)
[2018-11-21 11:34] LABS: Bilirubin,Direct < 0.2 mg/dL (0-0.2)
== END 2018-11-21 09:49 | disposition home or self-care (01) ==
LOC: LAB 09:48
PROVIDERS: ATTEND Internal Medicine
DX: E78.5 Hyperlipidemia, unspecified (principal); E55.9 Vitamin D deficiency, unspecified; E66.9 Obesity, unspecified; G47.00 Insomnia, unspecified; M94.0 Chondrocostal junction syndrome [Tietze]; R00.2 Palpitations; I82.91 Chronic embolism and thrombosis of unspecified vein; M19.90 Unspecified osteoarthritis, unspecified site; J45.909 Unspecified asthma, uncomplicated; Z72.0 Tobacco use
CPT/HCPCS: 36415; 80061; 80076; 82607; 83036; 85652; 86140

== ENCOUNTER 2019-02-27 18:23 | Emergency (ER) | payer MEDICAID ==
[2019-02-27 18:51] VITALS: BP 123/77
[2019-02-27 19:30] LABS: Bacteria,Urine 1+ /HPF (Negative); Bilirubin,Urine NEG (Negative); Blood,Urine SM (Negative); Color,Urine Colorless (Yellow); Protein,Urine <15 mg/dL mg/dL (Negative); Urobilinogen,Urine < 2.0 mg/dL (<2.0); WBC,Urine < 1.0 /HPF (0.0-6.0)
[2019-02-27] MEDS ORDERED: TORADOL IM ONE (19:51)
--- NOTE | 2019-02-27 20:04 | Emergency Department Report ---
ED Back Pain/Injury HPI - General Chief Complaint: Back Pain/Injury Stated Complaint: RT SIDE BACK PAIN Time Seen by Provider: 02/27/19 19:50 Source: patient Limitations: No Limitations - History of Present Illness Initial Comments: This is a 48-year-old male nontoxic, well nourished in appearance, no acute signs of distress presents to the ED with c/o of right lower back and right flank pain. Patient she does heavy lifting at work. Patient states that pain radiates through to her right lower extremity. Patient denies any trauma. Denies any bladder or bowel instability. Patient denies any urinary symptoms. Patient staetd that flank pain also radiates to right upper abdominal area. Denies any fever, chills, nausea, vomiting, headache, stiff neck, chest pain or shortness of breath. Patient denies any numbness or tingling. Patient stated allergies to cefoxitin. MD Complaint: back pain, other (flank pain) -: days(s) Similar Symptoms Previously: Yes Radiation: right leg Severity: mild Severity scale (0 -10): 8 Quality: aching Consistency: constant Improves With: immobilization, sitting upright Worsens With: movement, walking Associated Symptoms: abdominal pain, other (right flank area). denies: confusion, weakness, chest pain, numbness, difficulty walking, cough, difficulty urinating, diaphoresis, incontinence, fever/chills, constipation, headaches, loss of appetite, malaise, nausea/vomiting, rash, seizure, shortness of breath, syncope - Related Data Previous Rx's Medication Instructions Recorded Last Taken Type Diclofenac Dr (Nf) 50 mg PO BID #30 tablet. 10/16/17 Unknown Rx predniSONE [Deltasone] 20 mg PO DAILY #5 tablet 10/16/17 Unknown Rx traMADol [Ultram 50 MG tab] 50 mg PO Q6HR PRN #12 tablet 10/16/17 Unknown Rx Cyclobenzaprine [Flexeril] 10 mg PO QHS PRN #10 tablet 02/28/18 Unknown Rx Ibuprofen [Motrin] 600 mg PO Q8H PRN #30 tablet 02/28/18 Unknown Rx Omeprazole 40 mg PO DAILY #30 capsule. 07/07/18 Unknown Rx Cyclobenzaprine [Flexeril 10 MG 10 mg PO TID PRN #15 tablet 09/18/18 Unknown Rx TAB] Naproxen [Naprosyn] 500 mg PO BID PRN #20 tablet 09/18/18 Unknown Rx Cyclobenzaprine [Flexeril] 10 mg PO QHS PRN #10 tablet 02/28/19 Unknown Rx Ibuprofen [Motrin] 600 mg PO Q8H PRN #20 tablet 02/28/19 Unknown Rx Allergies Allergy/AdvReac Type Severity Reaction Status Date / Time cefoxitin sodium Allergy Shortness Verified 05/22/14 14:38 [From Mefoxin] of Breath ED Review of Systems ROS: Stated complaint: RT SIDE BACK PAIN Other details as noted in HPI Constitutional: denies: chills, fever Eyes: denies: eye pain, eye discharge, vision change ENT: denies: ear pain, throat pain Respiratory: denies: cough, shortness of breath, wheezing Cardiovascular: denies: chest pain, palpitations Endocrine: no symptoms reported Gastrointestinal: abdominal pain, other (right flank pain). denies: nausea, vomiting, diarrhea Genitourinary: denies: urgency, dysuria, discharge Musculoskeletal: back pain. denies: joint swelling, arthralgia Skin: denies: rash, lesions Neurological: denies: headache, weakness, paresthesias Psychiatric: denies: anxiety, depression Hematological/Lymphatic: denies: easy bleeding, easy bruising ED Past Medical Hx - Past Medical History Previous Medical History?: Yes Hx Congestive Heart Failure: No Hx Diabetes: No Hx Arthritis: Yes Hx Asthma: Yes Hx COPD: No Additional medical history: anxiety. previous neck spasm - Surgical History Past Surgical History?: Yes Additional Surgical History: c section. partial hysterectomy - 2008, - Social History Smoking Status: Never Smoker Substance Use Type: None - Medications Home Medications: Home Medications Medication Instructions Recorded Confirmed Last Taken Type Diclofenac (Nf) 50 mg PO BID #30 tablet. 10/16/17 Unknown Rx predniSONE [Deltasone] 20 mg PO DAILY #5 tablet 10/16/17 Unknown Rx traMADol [Ultram 50 MG tab] 50 mg PO Q6HR PRN #12 tablet 10/16/17 Unknown Rx Cyclobenzaprine [Flexeril] 10 mg PO QHS PRN #10 tablet 02/28/18 Unknown Rx Ibuprofen [Motrin] 600 mg PO Q8H PRN #30 tablet 02/28/18 Unknown Rx Omeprazole 40 mg PO DAILY #30 capsule. 07/07/18 Unknown Rx Cyclobenzaprine [Flexeril 10 MG 10 mg PO TID PRN #15 tablet 09/18/18 Unknown Rx TAB] Naproxen [Naprosyn] 500 mg PO BID PRN #20 tablet 09/18/18 Unknown Rx Cyclobenzaprine [Flexeril] 10 mg PO QHS PRN #10 tablet 02/28/19 Unknown Rx Ibuprofen [Motrin] 600 mg PO Q8H PRN #20 tablet 02/28/19 Unknown Rx ED Physical Exam - General Limitations: No Limitations General appearance: alert, in no apparent distress - Head Head exam: Present: atraumatic, normocephalic - Neck Neck exam: Present: normal inspection, full ROM. Absent: tenderness, meningismus, lymphadenopathy - Respiratory Respiratory exam: Present: normal lung sounds bilaterally. Absent: respiratory distress, wheezes, rales, rhonchi, stridor, chest wall tenderness, accessory muscle use, decreased breath sounds, prolonged expiratory - Cardiovascular Cardiovascular Exam: Present: regular rate, normal rhythm, normal heart sounds. Absent: bradycardia, tachycardia, irregular rhythm, systolic murmur, diastolic murmur, rubs, gallop - GI/Abdominal GI/Abdominal exam: Present: soft, normal bowel sounds. Absent: distended, tenderness, guarding, rebound, rigid, diminished bowel sounds - Extremities Exam Extremities exam: Present: normal inspection, full ROM, normal capillary refill. Absent: tenderness - Back Exam Back exam: Present: normal inspection, full ROM, paraspinal tenderness (right lumbar paraspinal). Absent: tenderness, CVA tenderness (R), CVA tenderness (L), muscle spasm, vertebral tenderness, rash noted - Expanded Back Exam Expanded Back exam: Absent: saddle anesthesia Back exam: Negative Straight Leg Raising: Left, Right - Neurological Exam Neurological exam: Present: alert, oriented X3, normal gait - Psychiatric Psychiatric exam: Present: normal affect, normal mood - Skin Skin exam: Present: warm, dry, intact, normal color. Absent: rash ED Course Vital Signs 02/27/19 18:49 Temperature 98.3 F Pulse Rate 83 Respiratory 20 Rate Blood Pressure 123/77 O2 Sat by Pulse 100 Oximetry - Reevaluation(s) Reevaluation #1: 02/27/19 20:04 Patient is speaking in full sentences with no signs of distress noted. ED Medical Decision Making - Lab Data Result diagrams: 02/27/19 20:06 02/27/19 20:06 - Medical Decision Making This is a 48-year-old female that presents with low back strain. Patient is stable was examined by me. There is no spinal tenderness. There is no cauda equina syndrome during examination. Labs unremarbale. CT abdomen within normal limits and dictated by the radiologist. No bladder or bowel instability. Patient received Toradol 60 mg IM in the ED which staetd that her symptoms has resolved and subsided. Patient is discharged with muscle relaxant and Motrin. Patient was instructed not to operate any machinery while taking muscle relaxant as they cause her drowsiness. Patient was referred to Follow-up with a primary care doctor in 3-5 days or if symptoms worsen and continue return to emergency room as soon as possible. At time of discharge, the patient does not seem toxic or ill in appearance. No acute signs of distress noted. Patient agrees to discharge treatment plan of care. No further questions noted by the patient. This chart is dictated with using [employer] Critical care attestation.: If time is entered above; I have spent that time in minutes in the direct care of this critically ill patient, excluding procedure time. ED Disposition Clinical Impression: Low back strain, Flank pain Disposition: DC-01 TO HOME OR SELFCARE Is pt being admited?: No Does the pt Need Aspirin: No Condition: Stable Instructions: Cyclobenzaprine (By mouth), Low Back Strain (ED) Additional Instructions: Follow-up with your primary care doctor in 3-5 days or if symptoms worsen such as bladder or bowel stability, chest pain, short of breath, numbness or tingling sensation in extremities, headache, dizziness, visual changes, nausea vomiting, or abdominal pain, return back to emergency room as was possible. Take ibuprofen and Flexeril as prescribed. Do not operate heavy machinery while taking Flexeril due to sedation Prescriptions: Cyclobenzaprine [Flexeril] 10 mg PO QHS PRN #10 tablet PRN Reason: Muscle Spasm Ibuprofen [Motrin] 600 mg PO Q8H PRN #20 tablet PRN Reason: Pain Referrals: JAMIE ANDERSON MD [Primary Care Provider] - 3-5 Days PRIMARY CAREMD [Referring] - 3-5 Days YOU BRAN MD [Staff Physician] - 3-5 Days [facility] [Outside] - 3-5 Days [facility] [Outside] - 3-5 Days Forms: Work/School Release Form(ED)
[2019-02-27 20:14] LABS: Basophils # (Auto) 0.1 K/mm3 (0.0-0.1); Basophils % (Auto) 0.5 % (0.0-1.8); Eosinophils # (Auto) 0.1 K/mm3 (0.0-0.4); Eosinophils % (Auto) 0.7 % (0.0-4.3); Hematocrit 43.7 % (30.3-42.9); Hemoglobin 14.3 gm/dl (10.1-14.3); Lymphocytes % (Auto) 17.6 % (13.4-35.0); Mean Corpuscular HGB Conc 33 % (30-34); Mean Corpuscular Volume 74 fl (79-97); Monocytes # (Auto) 0.7 K/mm3 (0.0-0.8); Monocytes % (Auto) 5.9 % (0.0-7.3); Platelet Count 263 K/mm3 (140-440); Red Blood Count 5.92 M/mm3 (3.65-5.03); Red Cell Distribution Width 15.4 % (13.2-15.2)
[2019-02-27 20:37] LABS: Alanine Aminotransferase 14 units/L (7-56); Albumin 4.3 g/dL (3.9-5); BUN/Creatinine Ratio 20; Blood Urea Nitrogen 14 mg/dL (7-17); Calcium 9.8 mg/dL (8.4-10.2); Hemolysis Index 23
[2019-02-27 20:38] LABS: Bilirubin,Direct < 0.2 mg/dL (0-0.2)
[2019-02-27] MEDS ORDERED: ATIVAN IV ONE (21:37)
--- NOTE | 2019-02-28 00:16 | Cat Scan Report ---
CT of the abdomen and pelvis without contrast INDICATION: Right flank pain COMPARISON: None FINDINGS: Lung bases are clear. The liver, spleen, pancreas, adrenal glands and kidneys all appear no rmal. No definite gallbladder or biliary tree abnormality. No fluid or adenopathy in the upper abdome n. Umbilical hernia contains bowel but no obstruction. CT of the pelvis shows no ureteral stones. No stone fragments seen in the bladder. Proximal appendix is prominent but the distal appendix is normal in diameter slice suspect this is a congenital variant rather than early appendicitis. There is been apparent hysterectomy. No pelvic fluid or adenopathy. No bowel obstruction. No significant skeletal lesion. IMPRESSION: No significant abnormality. Automated exposure control was utilized to diminish radiation dose. Signer Name: El Lackey MD Signed: 02/28/2019 12:12 AM Workstation Name: [id number]
== END 2019-02-28 00:45 | disposition home or self-care (01) ==
LOC: ED 18:23
DX: S39.012A Strain of muscle, fascia and tendon of lower back, initial encounter (principal); R10.9 Unspecified abdominal pain; J45.909 Unspecified asthma, uncomplicated; M19.90 Unspecified osteoarthritis, unspecified site; F41.9 Anxiety disorder, unspecified; Z90.710 Acquired absence of both cervix and uterus; Z79.899 Other long term (current) drug therapy; Z88.1 Allergy status to other antibiotic agents; X50.0XXA Overexertion from strenuous movement or load, initial encounter; Y93.89 Activity, other specified; Y92.89 Other specified places as the place of occurrence of the external cause; Y99.8 Other external cause status
CPT/HCPCS: 36415; 74176; 80048; 80076; 81001; 85025; 96372; 96374; 99284; J1885; J2060

== ENCOUNTER 2019-03-04 14:44 | Emergency (ER) | payer MEDICAID ==
[2019-03-04 15:28] VITALS: BP 116/79
[2019-03-04] MEDS ORDERED: TORADOL IM ONE (18:23)
--- NOTE | 2019-03-04 18:30 | Emergency Department Report ---
ED Back Pain/Injury HPI - General Chief Complaint: Extremity Injury, Lower Stated Complaint: LEG/FEET NUMBNESS Time Seen by Provider: 03/04/19 18:19 Source: patient Limitations: No Limitations - History of Present Illness Initial Comments: pt is a 48 y/o aaf with hx lumbar pain with sciatica and peripheral venous insufficiency, who present for low back pain x 1 week tx for same 1 week ago, statees tylenol not working, pt denies new fall injury or trauma there is no fever no chill no n/v on loss or decrease in bowel or bladder function, pt remains ambulatory to baseline per patient. MD Complaint: back pain Onset/Timin -: week(s), unknown (chronic for last yr ) Similar Symptoms Previously: Yes Place: home Radiation: left leg, right leg Severity: moderate Severity scale (0 -10): 4 Quality: aching Consistency: intermittent Improves With: none Worsens With: movement, sitting upright, walking Context: unknown Associated Symptoms: denies: weakness, difficulty walking, difficulty urinating, incontinence, fever/chills, constipation - Related Data Previous Rx's Medication Instructions Recorded Last Taken Type Diclofenac Dr (Nf) 50 mg PO BID #30 tablet. 10/16/17 Unknown Rx predniSONE [Deltasone] 20 mg PO DAILY #5 tablet 10/16/17 Unknown Rx traMADol [Ultram 50 MG tab] 50 mg PO Q6HR PRN #12 tablet 10/16/17 Unknown Rx Cyclobenzaprine [Flexeril] 10 mg PO QHS PRN #10 tablet 02/28/18 Unknown Rx Omeprazole 40 mg PO DAILY #30 capsule. 07/07/18 Unknown Rx Cyclobenzaprine [Flexeril 10 MG 10 mg PO TID PRN #15 tablet 09/18/18 Unknown Rx TAB] Cyclobenzaprine [Flexeril] 10 mg PO QHS PRN #10 tablet 02/28/19 Unknown Rx Diclofenac EC [Voltaren] 25 mg PO Q8HR PRN #30 tablet 03/04/19 Unknown Rx Menthol/Camphor [[place] 1 applicatio TP QID PRN #1 tube 03/04/19 Unknown Rx Ointment] Methocarbamol [Robaxin] 500 mg PO TID PRN #30 tablet 03/04/19 Unknown Rx Allergies Allergy/AdvReac Type Severity Reaction Status Date / Time cefoxitin sodium Allergy Shortness Verified 03/04/19 14:48 [From Mefoxin] of Breath ED Review of Systems ROS: Stated complaint: LEG/FEET NUMBNESS Other details as noted in HPI Constitutional: denies: chills, fever Eyes: denies: eye pain, eye discharge, vision change ENT: denies: ear pain, throat pain Respiratory: denies: cough, shortness of breath, wheezing Cardiovascular: denies: chest pain, palpitations Endocrine: no symptoms reported Gastrointestinal: denies: abdominal pain, nausea, diarrhea Genitourinary: as per HPI. denies: urgency, dysuria, frequency, hematuria, discharge, dyspareunia Musculoskeletal: back pain, arthralgia, myalgia. denies: joint swelling Skin: denies: rash, lesions Neurological: numbness, paresthesias (right lower leg ). denies: headache, weakness, confusion, abnormal gait, vertigo Psychiatric: denies: anxiety, depression Hematological/Lymphatic: denies: easy bleeding, easy bruising ED Past Medical Hx - Past Medical History Hx Congestive Heart Failure: No Hx Diabetes: No Hx Arthritis: Yes Hx Asthma: Yes Hx COPD: No Additional medical history: anxiety. previous neck spasm - Surgical History Additional Surgical History: c section. partial hysterectomy - 2008, - Social History Smoking Status: Never Smoker Substance Use Type: None - Medications Home Medications: Home Medications Medication Instructions Recorded Confirmed Last Taken Type Diclofenac Dr (Nf) 50 mg PO BID #30 tablet. 10/16/17 Unknown Rx predniSONE [Deltasone] 20 mg PO DAILY #5 tablet 10/16/17 Unknown Rx traMADol [Ultram 50 MG tab] 50 mg PO Q6HR PRN #12 tablet 10/16/17 Unknown Rx Cyclobenzaprine [Flexeril] 10 mg PO QHS PRN #10 tablet 02/28/18 Unknown Rx Omeprazole 40 mg PO DAILY #30 capsule. 07/07/18 Unknown Rx Cyclobenzaprine [Flexeril 10 MG 10 mg PO TID PRN #15 tablet 09/18/18 Unknown Rx TAB] Cyclobenzaprine [Flexeril] 10 mg PO QHS PRN #10 tablet 02/28/19 Unknown Rx Diclofenac EC [Voltaren] 25 mg PO Q8HR PRN #30 tablet 03/04/19 Unknown Rx Menthol/Camphor [[place] 1 applicatio TP QID PRN #1 tube 03/04/19 Unknown Rx Ointment] Methocarbamol [Robaxin] 500 mg PO TID PRN #30 tablet 03/04/19 Unknown Rx ED Physical Exam - General Limitations: No Limitations General appearance: alert, in no apparent distress - Head Head exam: Present: atraumatic, normocephalic, normal inspection - Eye Eye exam: Present: normal appearance, PERRL, EOMI. Absent: conjunctival injection, nystagmus Pupils: Present: normal accommodation - ENT ENT exam: Present: normal exam, mucous membranes moist - Neck Neck exam: Present: normal inspection, full ROM. Absent: tenderness, meningismus, lymphadenopathy, thyromegaly - Expanded Neck Exam Expanded Neck exam: Absent: tenderness (no posterior vertebral point tenderness ), midline deformity, anterior neck swelling, thyroid mass, carotid bruit, tracheal deviation - Respiratory Respiratory exam: Present: normal lung sounds bilaterally. Absent: respiratory distress, wheezes, rales, stridor, chest wall tenderness - Cardiovascular Cardiovascular Exam: Present: regular rate, normal rhythm, normal heart sounds. Absent: systolic murmur, diastolic murmur, rubs, gallop - GI/Abdominal GI/Abdominal exam: Present: soft, normal bowel sounds. Absent: distended, tenderness, bruit, hernia - Rectal Rectal exam: Present: deferred - Extremities Exam Extremities exam: Present: normal inspection, full ROM, normal capillary refill. Absent: tenderness, pedal edema, joint swelling, calf tenderness - Expanded Lower Extremity Exam Right Hip exam: Present: full ROM. Absent: tenderness Upper Leg exam: Present: full ROM. Absent: tenderness Knee exam: Present: full ROM. Absent: tenderness Lower Leg exam: Present: full ROM. Absent: tenderness Ankle exam: Present: normal inspection, full ROM. Absent: tenderness Foot/Toe exam: Present: full ROM. Absent: tenderness Neuro vascular tendon exam: Present: no vascular compromise. Absent: pulse deficit, abnormal cap refill, motor deficit, sensory deficit, tendon deficit, extremity cold to touch, pallor, abnormal 2-point discrimination, decreased fine/light touch, foot drop, peroneal nerve deficit Gait: Positive: observed and normal - Back Exam Back exam: Present: normal inspection, full ROM, tenderness (no posterior vertebral point tenderness mild paraspinus pain to deep palpation), muscle spasm, paraspinal tenderness. Absent: CVA tenderness (R), CVA tenderness (L), vertebral tenderness, rash noted - Expanded Back Exam Expanded Back exam: Absent: saddle anesthesia Back exam: Positive Straight Leg Raise: Left, Right - Neurological Exam Neurological exam: Present: alert, oriented X3, CN II-XII intact, normal gait, motor sensory deficit, reflexes normal - Psychiatric Psychiatric exam: Present: normal affect, normal mood - Skin Skin exam: Present: warm, dry, intact, normal color. Absent: rash ED Course Vital Signs 03/04/19 15:27 Temperature 98.9 F Pulse Rate 78 Respiratory 16 Rate Blood Pressure 116/79 [Left] O2 Sat by Pulse 99 Oximetry ED Medical Decision Making - Radiology Data Radiology results: report reviewed, image reviewed Ordering Physician: CHASE NERI NP Date of Service: 03/04/19 Procedure(s): XR spine lumbosacral 2-3V Accession Number(s): [id number] cc: CHASE NERI NP Fluoro Time In Minutes: LUMBAR SPINE 3 VIEWS INDICATION: low back pain. COMPARISON: No relevant prior imaging study available. FINDINGS: Lumbar vertebral body height and disc space height is maintained. Alignment is within normal limits. SI joints are unremarkable. Punctate phleboliths are noted in the pelvis. IMPRESSION: 1. No acute findings. Signer Name: Ousmane Mayen MD Signed: 03/04/2019 7:01 PM Workstation Name: [id number] Transcribed By: SW Dictated By: Ousmane Mayen MD Electronically Authenticated By: Ousmane Mayen MD Signed Date/Time: 03/04/191900 DD/ 00 TD/TT: - Medical Decision Making xrays normal , this is acute exacerbation of chronic low back pain plan diclofenace, methorcarbamol, follow up with ortho, follow up primary care return to emergency if symptoms worsen, pt verbalized agreement and understanding of discharge plan, Critical care attestation.: If time is entered above; I have spent that time in minutes in the direct care of this critically ill patient, excluding procedure time. ED Disposition Clinical Impression: Sciatic leg pain Low back pain Qualifiers: Chronicity: acute Back pain laterality: bilateral Sciatica presence: with sciatica Sciatica laterality: bilateral sciatica Qualified Code(s): M54.42 - Lumbago with sciatica, left side; M54.41 - Lumbago with sciatica, right side Disposition: TO HOME OR SELFCARE Is pt being admited?: No Does the pt Need Aspirin: No Condition: Stable Instructions: Arthralgia (ED), Lumbar Radiculopathy (ED) Prescriptions: Methocarbamol [Robaxin] 500 mg PO TID PRN #30 tablet PRN Reason: Spasms Menthol/Camphor [[place] Ointment] 1 applicatio TP QID PRN #1 tube PRN Reason: pain Diclofenac EC [Voltaren] 25 mg PO Q8HR PRN #30 tablet PRN Reason: Pain , Severe (7-10) Referrals: ARCELIA TIRADO MD [Staff Physician] - 3-5 Days HUGH GUALLPA MD [Staff Physician] - 3-5 Days Forms: Work/School Release Form(ED)
--- NOTE | 2019-03-04 19:06 | XRay Report ---
LUMBAR SPINE 3 VIEWS INDICATION: low back pain. COMPARISON: No relevant prior imaging study available. FINDINGS: Lumbar vertebral body height and disc space height is maintained. Alignment is within normal limits. SI joints are unremarkable. Punctate phleboliths are noted in the pelvis. IMPRESSION: 1. No acute findings. Signer Name: Ousmane Mayen MD Signed: 03/04/2019 7:01 PM Workstation Name: [id number]
[2019-03-04 19:18] LABS: Bilirubin,Urine NEG (Negative); Blood,Urine SM (Negative); Color,Urine Yellow (Yellow); Mucus,Urine FEW /HPF; Protein,Urine <15 mg/dL mg/dL (Negative); Urobilinogen,Urine < 2.0 mg/dL (<2.0)
== END 2019-03-04 21:00 | disposition home or self-care (01) ==
LOC: ED 14:44
DX: M54.42 Lumbago with sciatica, left side (principal); M54.41 Lumbago with sciatica, right side; M19.90 Unspecified osteoarthritis, unspecified site; J45.909 Unspecified asthma, uncomplicated; F41.9 Anxiety disorder, unspecified; Z90.710 Acquired absence of both cervix and uterus; Z79.899 Other long term (current) drug therapy; Z88.8 Allergy status to other drugs, medicaments and biological substances
CPT/HCPCS: 72100; 81001; 96372; 99283; J1885

== ENCOUNTER 2019-03-06 09:34 | Outpatient (CLI) | payer MEDICAID ==
--- NOTE | 2019-03-06 10:15 | Mammography Report ---
DIGITAL SCREENING MAMMOGRAM WITH CAD, 03/06/2019 INDICATION: Routine screening mammography. TECHNIQUE: Digital bilateral 2D mammography was obtained in the craniocaudal and mediolateral obliq ue projections. This examination was interpreted with the benefit of Computer-Aided Detection analysi s. COMPARISON: 10/20/2016 FINDINGS: Breast Density: There are scattered areas of fibroglandular density. There is no evidence of dominant mass, suspicious calcifications or architectural distortion in eithe r breast. No interval change. IMPRESSION: No evidence of malignancy. BI-RADS Category 1: Negative. No mammographic evidence of malignancy. Recommend routine screening m ammography in one year. A "normal" or negative report should not discourage follow up or biopsy of a clinically significant f inding. A written summary of these findings will be mailed to the patient. The patient will be entered into a mammography reporting system which will generate a reminder letter for the patient's next appointmen t at the appropriate interval. The [employer] recommends yearly mammograms starting at age 40 and continuing as l aileen as a woman is in good health. Breast MRI is recommended for women with an approximate 20-25% or greater lifetime risk of breast cancer, including women with a strong family history of breast or ova sherie cancer or who have been treated for Hodgkin's disease. Signer Name: aMrilu Meza MD Signed: 03/06/2019 10:10 AM Workstation Name: [id number]
== END 2019-03-06 09:35 | disposition home or self-care (01) ==
LOC: MAMMO 09:34
PROVIDERS: ATTEND Internal Medicine
DX: Z12.31 Encounter for screening mammogram for malignant neoplasm of breast (principal); J45.909 Unspecified asthma, uncomplicated; Z90.710 Acquired absence of both cervix and uterus
CPT/HCPCS: 77067

== ENCOUNTER 2019-04-10 09:34 | Outpatient (CLI) | payer MEDICAID ==
[2019-04-10 11:19] LABS: Mean Corpuscular HGB Conc 32 % (30-34); Mean Corpuscular Volume 74 fl (79-97); Platelet Count 275 K/mm3 (140-440); Red Blood Count 5.55 M/mm3 (3.65-5.03)
[2019-04-10 11:34] LABS: Chol/HDL Ratio 2.92 %
[2019-04-13 09:01] LABS: Vitamin D, 25-OH, D2 <4 ng/mL
== END 2019-04-10 09:35 | disposition home or self-care (01) ==
LOC: LAB 09:34
PROVIDERS: ATTEND Internal Medicine
DX: E78.5 Hyperlipidemia, unspecified (principal); E55.9 Vitamin D deficiency, unspecified; D72.829 Elevated white blood cell count, unspecified; E87.5 Hyperkalemia; J45.909 Unspecified asthma, uncomplicated; Z90.710 Acquired absence of both cervix and uterus
CPT/HCPCS: 36415; 80061; 82306; 84132; 85027

== ENCOUNTER 2019-08-14 10:57 | Outpatient (CLI) | payer MEDICAID ==
[2019-08-14 11:28] LABS: Basophils # (Auto) 0.1 K/mm3 (0.0-0.1); Eosinophils # (Auto) 0.1 K/mm3 (0.0-0.4); Eosinophils % (Auto) 1.8 % (0.0-4.3); Hematocrit 40.7 % (30.3-42.9); Hemoglobin 13.2 gm/dl (10.1-14.3); Lymphocytes # (Auto) 2.4 K/mm3 (1.2-5.4); Lymphocytes % (Auto) 40.8 % (13.4-35.0); Mean Corpuscular HGB Conc 33 % (30-34); Mean Corpuscular Volume 75 fl (79-97); Monocytes # (Auto) 0.4 K/mm3 (0.0-0.8); Monocytes % (Auto) 7.2 % (0.0-7.3); Platelet Count 307 K/mm3 (140-440); Red Blood Count 5.41 M/mm3 (3.65-5.03); Red Cell Distribution Width 16.5 % (13.2-15.2)
[2019-08-14 12:11] LABS: Alanine Aminotransferase 13 units/L (7-56); Albumin 4.2 g/dL (3.9-5); BUN/Creatinine Ratio 23; Blood Urea Nitrogen 14 mg/dL (7-17); Calcium 9.8 mg/dL (8.4-10.2); Chol/HDL Ratio 3.31 %; HDL Cholesterol 70 mg/dL (40-59); Hemolysis Index 7; LDL Cholesterol,Direct 154 mg/dL (50-130)
[2019-08-17 11:11] LABS: Vitamin D, 25-OH, D2 <4 ng/mL
== END 2019-08-14 10:58 | disposition home or self-care (01) ==
LOC: LAB 10:57
PROVIDERS: ATTEND Internal Medicine
DX: Z00.00 Encounter for general adult medical examination without abnormal findings (principal); E78.5 Hyperlipidemia, unspecified; R73.9 Hyperglycemia, unspecified; Z13.29 Encounter for screening for other suspected endocrine disorder; E55.9 Vitamin D deficiency, unspecified
CPT/HCPCS: 36415; 80053; 80061; 82306; 82607; 83036; 84443; 85025

== ENCOUNTER 2019-08-28 11:15 | Outpatient (CLI) | payer MEDICAID ==
[2019-08-28 13:23] LABS: Free T4 (Free Thyroxine) 0.6 ng/dL (0.76-1.46)
== END 2019-08-28 11:16 | disposition home or self-care (01) ==
LOC: LAB 11:15
PROVIDERS: ATTEND Internal Medicine
DX: R94.6 Abnormal results of thyroid function studies (principal)
CPT/HCPCS: 36415; 84439; 84443

== ENCOUNTER 2019-09-19 11:46 | Outpatient (CLI) | payer MEDICAID ==
--- NOTE | 2019-09-19 12:52 | XRay Report ---
CHEST 2 VIEWS INDICATION: CHEST PAIN. COMPARISON: 09/18/2018 FINDINGS: Support devices: None. Heart: Within normal limits. Pulmonary vasculature: Normal. Lungs/pleura: The lungs are normally expanded and clear. No airspace disease or pleural effusion. No pneumothorax. Additional findings: None. IMPRESSION: 1. Normal chest. Signer Name: Daniel Zhao MD Signed: 09/19/2019 12:47 PM Workstation Name: [id number]
== END 2019-09-19 11:47 | disposition home or self-care (01) ==
LOC: XRAY 11:46
PROVIDERS: ATTEND Internal Medicine
DX: R07.9 Chest pain, unspecified (principal)
CPT/HCPCS: 71046

== ENCOUNTER 2019-10-19 14:51 | Outpatient (CLI) | payer MEDICAID | END 2019-10-19 14:52 | disposition home or self-care (01) | LOC: LAB 14:51 | PROVIDERS: ATTEND Internal Medicine | DX: E03.9 Hypothyroidism, unspecified (principal); M13.0 Polyarthritis, unspecified | CPT/HCPCS: 36415; 84443; 85652; 86038; 86225; 86431 ==

== ENCOUNTER 2020-04-26 14:36 | Outpatient (CLI) | payer MEDICAID ==
[2020-04-26 15:38] LABS: Chol/HDL Ratio 3.66 %
== END 2020-04-26 14:37 | disposition home or self-care (01) ==
LOC: LAB 14:36
PROVIDERS: ATTEND Internal Medicine
DX: E03.9 Hypothyroidism, unspecified (principal); E78.5 Hyperlipidemia, unspecified
CPT/HCPCS: 36415; 80061; 84443

== ENCOUNTER 2020-07-05 11:43 | Emergency (ER) | payer MEDICAID ==
[2020-07-05 11:52] VITALS: BP 142/83
--- NOTE | 2020-07-05 11:57 | Event Note ---
ED Screening Note Date of service: 07/05/20 Time: 11:54 ED Screening Note: 50-year-old -[place] female presents to the emergency room for pain in her back with inspiration. Denies any fever chills no nausea no vomiting. History of asthma. This initial assessment/diagnostic orders/clinical plan/treatment(s) is/are subject to change based on patients health status, clinical progression and re- assessment by fellow clinical providers in the ED. Further treatment and workup at subsequent clinical providers discretion. Patient/guardian urged not to elope from the ED as their condition may be serious if not clinically assessed and managed. Initial orders include:
--- NOTE | 2020-07-05 12:20 | XRay Report ---
CHEST 2 VIEWS INDICATION / CLINICAL INFORMATION: pain with insprition. FINDINGS: SUPPORT DEVICES: None. HEART / MEDIASTINUM: No significant abnormality. LUNGS / PLEURA: No significant pulmonary or pleural abnormality. No pneumothorax. ADDITIONAL FINDINGS: No significant additional findings. IMPRESSION: 1. No acute findings. Signer Name: Baldo Ryan MD Signed: 07/05/2020 12:15 PM Workstation Name: [id number]
[2020-07-05] MEDS ORDERED: KETOROLAC 60 MG/2 ML INJ IM ONE (14:36)
[2020-07-05] MEDS ORDERED: DEXAMETHASONE 4 MG TAB PO ONE (14:36)
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
== END 2020-07-05 15:05 | disposition home or self-care (01) ==
LOC: ED 11:43
DX: M54.6 Pain in thoracic spine (principal); M62.838 Other muscle spasm; M19.90 Unspecified osteoarthritis, unspecified site; J45.909 Unspecified asthma, uncomplicated; F41.9 Anxiety disorder, unspecified; F12.10 Cannabis abuse, uncomplicated; Z90.710 Acquired absence of both cervix and uterus; Z79.899 Other long term (current) drug therapy; Z88.8 Allergy status to other drugs, medicaments and biological substances
CPT/HCPCS: 71046; 96372; 99283; J1885; J8540

== ENCOUNTER 2020-09-09 10:14 | Outpatient (CLI) | payer MEDICAID ==
[2020-09-09 11:06] LABS: Chol/HDL Ratio 2.34 %
== END 2020-09-09 10:15 | disposition home or self-care (01) ==
LOC: LAB 10:14
PROVIDERS: ATTEND Internal Medicine
DX: E03.9 Hypothyroidism, unspecified (principal); E78.5 Hyperlipidemia, unspecified
CPT/HCPCS: 36415; 80061; 84443

== ENCOUNTER 2020-12-18 11:31 | Outpatient (CLI) | payer MEDICAID ==
[2020-12-18 12:04] LABS: Basophils % (Auto) 0.8 % (0.0-1.8); Eosinophils # (Auto) 0.1 K/mm3 (0.0-0.4); Eosinophils % (Auto) 2.2 % (0.0-4.3); Hematocrit 40.8 % (30.3-42.9); Hemoglobin 13.4 gm/dl (10.1-14.3); Lymphocytes # (Auto) 1.6 K/mm3 (1.2-5.4); Lymphocytes % (Auto) 33.5 % (13.4-35.0); Mean Corpuscular HGB Conc 33 % (30-34); Mean Corpuscular Volume 74 fl (79-97); Monocytes # (Auto) 0.5 K/mm3 (0.0-0.8); Monocytes % (Auto) 10.2 % (0.0-7.3); Platelet Count 256 K/mm3 (140-440); Red Blood Count 5.53 M/mm3 (3.65-5.03); Red Cell Distribution Width 15.3 % (13.2-15.2)
[2020-12-18 12:26] LABS: Alanine Aminotransferase 19 units/L (7-56); Albumin 3.9 g/dL (3.9-5); Blood Urea Nitrogen 12 mg/dL (7-17); Calcium 9.2 mg/dL (8.4-10.2); Chol/HDL Ratio 3.48 %; HDL Cholesterol 58 mg/dL (40-59); Hemolysis Index 4; LDL Cholesterol,Direct 140 mg/dL (50-130)
[2020-12-18 12:29] LABS: BUN/Creatinine Ratio 24
[2020-12-22 12:49] LABS: Vitamin D, 25-OH, D2 <4 ng/mL
== END 2020-12-18 11:32 | disposition home or self-care (01) ==
LOC: LAB 11:31
PROVIDERS: ATTEND Internal Medicine
DX: Z13.220 Encounter for screening for lipoid disorders (principal); Z13.1 Encounter for screening for diabetes mellitus; Z00.00 Encounter for general adult medical examination without abnormal findings; E55.9 Vitamin D deficiency, unspecified; E03.9 Hypothyroidism, unspecified
CPT/HCPCS: 36415; 80053; 80061; 82306; 83036; 84443; 85025

== ENCOUNTER 2020-12-19 15:40 | Emergency (ER) | payer MEDICAID ==
[2020-12-19] MEDS ORDERED: IBUPROFEN 600 MG TAB PO ONE ×2 (16:58→20:00)
[2020-12-19] MEDS ORDERED: ACETAMINOPHEN 500 MG TAB PO ONE ×2 (16:58→20:00)
[2020-12-19] MEDS ORDERED: predniSONE 20 MG TAB PO ONE ×2 (16:58→20:00)
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
[2020-12-19 17:15] LABS: Bilirubin,Urine NEG (Negative); Blood,Urine NEG (Negative); Color,Urine Yellow (Yellow); Mucus,Urine FEW /HPF; Protein,Urine <15 mg/dL mg/dL (Negative); Urobilinogen,Urine < 2.0 mg/dL (<2.0)
[2020-12-19 17:16] LABS: HCG Qualitative,Urine Negative (Negative)
[2020-12-19 18:28] LABS: Hematocrit 41.7 % (30.3-42.9); Mean Corpuscular HGB Conc 34 % (30-34); Mean Corpuscular Volume 72 fl (79-97); Platelet Count 254 K/mm3 (140-440); Red Blood Count 5.77 M/mm3 (3.65-5.03); Red Cell Distribution Width 15.4 % (13.2-15.2)
[2020-12-19 18:33] LABS: Alanine Aminotransferase 20 units/L (7-56); Albumin 4.2 g/dL (3.9-5); Blood Urea Nitrogen 9 mg/dL (7-17); Calcium 9.3 mg/dL (8.4-10.2); Hemolysis Index 9
[2020-12-19 18:34] LABS: BUN/Creatinine Ratio 13
[2020-12-19] MEDS ORDERED: HYDROcodone/ACETAMINOPHEN 5-325 MG TAB PO ONE (19:29)
[2020-12-19] MEDS ORDERED: ONDANSETRON 4 MG ODT TAB PO ONE (19:29)
[2020-12-19 19:30] LABS: Hypochromasia 1+; Total Cells Counted 100
[2020-12-19 19:31] LABS: Anisocytosis RARE
--- NOTE | 2020-12-19 20:11 | XRay Report ---
LUMBAR SPINE 2 VIEWS INDICATION / CLINICAL INFORMATION: PAIN - FEVER. COMPARISON: 03/04/2019 FINDINGS: No significant skeletal abnormality. Alignment is normal. Signer Name: Roman Ryan MD FACLew Signed: 12/19/2020 8:07 PM Workstation Name: [id number]
--- NOTE | 2020-12-19 20:11 | XRay Report ---
CHEST 1 VIEW INDICATION / CLINICAL INFORMATION: FEVER. COMPARISON: 07/05/2020 FINDINGS: SUPPORT DEVICES: None. HEART / MEDIASTINUM: No significant abnormality. LUNGS / PLEURA: No significant pulmonary or pleural abnormality. No pneumothorax. ADDITIONAL FINDINGS: No significant additional findings. IMPRESSION: No acute disease or interval change from 07/05/2020 Signer Name: Roman Ryan MD FACR Signed: 12/19/2020 8:06 PM Workstation Name: [id number]
[2020-12-19 23:10] VITALS: BP 108/67
== END 2020-12-19 22:15 | disposition home or self-care (01) ==
LOC: ED 15:40
DX: B34.9 Viral infection, unspecified (principal); R50.9 Fever, unspecified; M62.830 Muscle spasm of back; M54.5 Low back pain; M19.91 Primary osteoarthritis, unspecified site; J45.909 Unspecified asthma, uncomplicated; F12.10 Cannabis abuse, uncomplicated; Z98.890 Other specified postprocedural states; Z79.899 Other long term (current) drug therapy; Z88.8 Allergy status to other drugs, medicaments and biological substances
CPT/HCPCS: 36415; 71045; 72100; 80053; 81001; 81025; 85007; 85025; 99284; J7512; Q0162

== ENCOUNTER 2020-12-26 10:02 | Outpatient (CLI) | payer MEDICAID ==
--- NOTE | 2020-12-26 12:38 | Mammography Report ---
DIGITAL SCREENING MAMMOGRAM WITH CAD, 12/26/2020 CLINICAL INFORMATION / INDICATION: Routine screening mammography. SCREENING MAMMO TECHNIQUE: Digital bilateral 2D mammography was obtained in the craniocaudal and mediolateral obliqu e projections. This examination was interpreted with the benefit of Computer-Aided Detection analysis . COMPARISON: 04/14/2010 through 03/06/2019. FINDINGS: Breast Density: There are scattered areas of fibroglandular density. No dominant mass, suspicious calcifications, or architectural distortion in either breast. IMPRESSION: No mammographic evidence of malignancy. Follow up recommendation: Routine yearly BI-RADS Category 1: Negative. A "normal" or negative report should not discourage follow up or biopsy of a clinically significant f inding. A written summary of these findings will be mailed to the patient. The patient will be entered into a mammography reporting system which will generate a reminder letter for the patient's next appointmen t at the appropriate interval. The [employer] recommends yearly mammograms starting at age 40 and continuing as l aileen as a woman is in good health. Breast MRI is recommended for women with an approximate 20-25% or greater lifetime risk of breast cancer, including women with a strong family history of breast or ova sherie cancer or who have been treated for Hodgkin's disease. Signer Name: Jimenez Hoang MD Signed: 12/26/2020 12:33 PM Workstation Name: [id number]
== END 2020-12-26 10:03 | disposition home or self-care (01) ==
LOC: MAMMO 10:02
PROVIDERS: ATTEND Internal Medicine
DX: Z12.31 Encounter for screening mammogram for malignant neoplasm of breast (principal)
CPT/HCPCS: 77067

== ENCOUNTER 2021-04-30 10:08 | Outpatient (CLI) | payer MEDICAID ==
[2021-04-30 10:57] LABS: Chol/HDL Ratio 4.3 %
== END 2021-04-30 10:09 | disposition home or self-care (01) ==
LOC: LAB 10:08
PROVIDERS: ATTEND Internal Medicine
DX: E03.9 Hypothyroidism, unspecified (principal); E78.5 Hyperlipidemia, unspecified
CPT/HCPCS: 36415; 80061; 84443

== ENCOUNTER 2021-09-08 10:18 | Outpatient (CLI) | payer MEDICAID ==
[2021-09-08 11:18] LABS: Chol/HDL Ratio 2.38 %
== END 2021-09-08 10:19 | disposition home or self-care (01) ==
LOC: LAB 10:18
PROVIDERS: ATTEND Internal Medicine
DX: E78.5 Hyperlipidemia, unspecified (principal)
CPT/HCPCS: 36415; 80061

== ENCOUNTER 2022-02-08 18:08 | Emergency (ER) | payer MEDICAID ==
[2022-02-08 18:39] VITALS: BP 106/69
== END 2022-02-08 20:00 | disposition left against medical advice (07) ==
LOC: ED 18:08
DX: M54.9 Dorsalgia, unspecified (principal); Z53.21 Procedure and treatment not carried out due to patient leaving prior to being seen by health care provider

== ENCOUNTER 2022-03-16 11:40 | Outpatient (CLI) | payer MEDICAID ==
[2022-03-16 12:31] LABS: Hematocrit 43.3 % (30.3-42.9); Hemoglobin 13.6 gm/dl (10.1-14.3); Mean Corpuscular HGB Conc 32 % (30-34); Mean Corpuscular Volume 73 fl (79-97); Platelet Count 290 K/mm3 (140-440); Red Blood Count 5.93 M/mm3 (3.65-5.03); Red Cell Distribution Width 15.6 % (13.2-15.2)
[2022-03-16 12:48] LABS: Alanine Aminotransferase 20 units/L (7-56); Albumin 4.4 g/dL (3.9-5); Blood Urea Nitrogen 11 mg/dL (7-17); Calcium 10.1 mg/dL (8.4-10.2); Chol/HDL Ratio 3.42 %; HDL Cholesterol 69 mg/dL (40-59); Hemolysis Index 1; LDL Cholesterol,Direct 148 mg/dL (50-130)
[2022-03-16 12:52] LABS: BUN/Creatinine Ratio 18
[2022-03-16 14:28] LABS: Basophils % (Manual) 0 % (0.0-1.8); Giant Platelets Few; Platelet Estimate Consistent w Auto; RBC Morphology Normal; Total Cells Counted 100
== END 2022-03-16 11:41 | disposition home or self-care (01) ==
LOC: LABHHL 11:40
PROVIDERS: ATTEND Internal Medicine
DX: E55.9 Vitamin D deficiency, unspecified (principal); E78.5 Hyperlipidemia, unspecified; E03.9 Hypothyroidism, unspecified
CPT/HCPCS: 36415; 80053; 80061; 82306; 84443; 85007; 85025

== ENCOUNTER 2022-04-03 10:52 | Outpatient (CLI) | payer MEDICAID ==
--- NOTE | 2022-04-06 12:06 | Mammography Report ---
DIGITAL SCREENING MAMMOGRAM WITH CAD, 04/03/2022 CLINICAL INFORMATION / INDICATION: Routine screening mammography. SCREENING MAMMOGRAM Z12.31 TECHNIQUE: Digital bilateral 2D mammography was obtained in the craniocaudal and mediolateral obliqu e projections. This examination was interpreted with the benefit of Computer-Aided Detection analysis . COMPARISON: 12/26/2020. FINDINGS: Breast Density: There are scattered areas of fibroglandular density. No dominant mass, suspicious calcifications, or architectural distortion in either breast. IMPRESSION: No mammographic evidence of malignancy. Follow up recommendation: Routine yearly screening mammogram. BI-RADS Category 1: NEGATIVE A "normal" or negative report should not discourage follow up or biopsy of a clinically significant f inding. A written summary of these findings will be mailed to the patient. The patient will be entered into a mammography reporting system which will generate a reminder letter for the patient's next appointmen t at the appropriate interval. The [employer] recommends yearly mammograms starting at age 40 and continuing as l aileen as a woman is in good health. Breast MRI is recommended for women with an approximate 20-25% or greater lifetime risk of breast cancer, including women with a strong family history of breast or ova sherie cancer or who have been treated for Hodgkin's disease. Signer Name: Poli Toure MD Signed: 04/06/2022 12:02 PM Workstation Name: [email or web address]
== END 2022-04-03 10:53 | disposition home or self-care (01) ==
LOC: MAMMO 10:52
PROVIDERS: ATTEND Internal Medicine
DX: Z12.31 Encounter for screening mammogram for malignant neoplasm of breast (principal)
CPT/HCPCS: 77067